=== PATIENT | male | born 1990 | race Two or more races ===

== ENCOUNTER 2019-03-29 16:05 | Emergency (ER) | payer MEDICAID ==
[~2019-03-29] VITALS: Ht 182.9 cm; Wt 90.7 kg
[2019-03-29 16:16] VITALS: BP 113/66; Ht 182.9 cm; Wt 90.7 kg
== END 2019-03-29 18:11 | disposition home or self-care (01) ==
LOC: ED 16:05
DX: S83.91XA Sprain of unspecified site of right knee, initial encounter (principal); X58.XXXA Exposure to other specified factors, initial encounter; Y93.67 Activity, basketball; Y92.89 Other specified places as the place of occurrence of the external cause; Y99.8 Other external cause status

== ENCOUNTER 2019-06-03 02:31 | Emergency (ER) | payer OTHER ==
[~2019-06-03] VITALS: Ht 193 cm; Wt 90.7 kg
[2019-06-03 02:38] VITALS: Ht 193 cm; Wt 90.7 kg
[2019-06-03 04:40] VITALS: BP 130/70
== END 2019-06-03 04:40 | disposition home or self-care (01) ==
LOC: ED 02:31
DX: R50.9 Fever, unspecified (principal); R11.2 Nausea with vomiting, unspecified; R19.7 Diarrhea, unspecified; Z98.890 Other specified postprocedural states
CPT/HCPCS: J1885; J2405; J7030